=== PATIENT | male | born 1945 | race African-American/Black ===

== ENCOUNTER 2021-02-14 14:48 | Inpatient (IN) | payer MEDICARE ==
[~2021-02-14] VITALS: Ht 177.8 cm; Wt 80.7 kg
[2021-02-14 15:28] LABS: CHLORIDE 104 mEq/L (98-107)
[2021-02-14 15:39] LABS: ETHANOL BLOOD < 10 mg/dL
[2021-02-14 15:56] LABS: BASOPHILS % 0.7 % (0.0-2.0); EOSINOPHILS % 0.8 % (0.0-5.0); HEMATOCRIT. 26.6 % (42.0-52.0); LYMPHOCYTES % 13.4 % (20.0-50.0); MEAN CORPUSCULAR HEMOGLOBIN 36.6 pg (28.0-32.0); MEAN CORPUSCULAR VOLUME 105.3 fL (80.0-94.0); MEAN PLATELET VOLUME 8.1 fl (7.4-10.4); MONOCYTES % 1.8 % (2.0-8.0); NEUTROPHILS % 83.3 % (40.0-76.0); PLATELET 170 x1000/uL (130-400); RED BLOOD CELL COUNT 2.52 mill/uL (4.7-6.1); RED CELL DISTRIBUTION WIDTH 21.1 % (11.6-14.6)
[2021-02-14 15:59] LABS: HEMOGLOBIN. 9.2 g/dL (14.0-18.0)
[2021-02-14] MEDS ORDERED: ASPIRIN 325MG EC TABLET PO NR (16:00)
[2021-02-14] MEDS ORDERED: ALBUTEROL (0.083%) 2.5MG/3ML NEB HHN NR (17:15)
[2021-02-14] MEDS ORDERED: IOHEXOL-350 100 ML BOTTLE ONE (18:22)
[2021-02-14] MEDS ORDERED: ACETAMINOPHEN 325MG TABLET PO PRN (19:45)
[2021-02-14] MEDS ORDERED: CLONIDINE 0.1MG TABLET PO PRN (19:45)
[2021-02-14] MEDS ORDERED: DIPHENHYDRAMINE 50MG/ML VIAL IV PRN (19:45)
[2021-02-14] MEDS ORDERED: IPRATROPIUM/ALBUTEROL 0.5-3(2.5)MG/3ML NEB HHN PRN (19:45)
[2021-02-14] MEDS ORDERED: GUAIFENESIN 200MG/10ML SUGAR FREE UDC PO PRN (19:45)
[2021-02-14] MEDS ORDERED: MAGNESIUM/ALUMINUM HYDROXIDE/SIMETHICONE 30ML UDC PO PRN (19:45)
[2021-02-14] MEDS ORDERED: MORPHINE SULFATE 2 MG/ML CPJ (NOT FOR IM USE) IV PRN ×2 (19:45→21:30)
[2021-02-14] MEDS ORDERED: ONDANSETRON HCL 4MG/2ML INJ IV PRN (19:45)
[2021-02-14] MEDS ORDERED: NALOXONE HCL 0.4MG/ML VIAL IV PRN (20:00)
[2021-02-14] MEDS: IPRATROPIUM/ALBUTEROL 0.5-3(2.5)MG/3ML NEB HHN SCH (20:35)
[2021-02-14] MEDS: ENOXAPARIN 40MG/0.4ML SYR SUBCUT SCH (20:46)
[2021-02-14 21:03] LABS: *AMPHETAMINES SCREEN URINE NEGATIVE (NEGATIVE); *BARBITURATES SCREEN URINE NEGATIVE (NEGATIVE); *BENZODIAZEPINES SCREEN URINE NEGATIVE (NEGATIVE); *COCAINE SCREEN URINE NEGATIVE (NEGATIVE)
[2021-02-14 21:05] LABS: CANNABINOID URINE SCREEN NEGATIVE (NEGATIVE); METHADONE URINE SCREEN NEGATIVE (NEGATIVE); OPIATES URINE SCREEN NEGATIVE (NEGATIVE); PHENCYCLIDINE URINE SCREEN NEGATIVE (NEGATIVE)
[2021-02-14] MEDS: OMEPRAZOLE 20MG CAPSULE EXTENDED RELEASE PO SCH (22:11)
[2021-02-14] MEDS: PREDNISONE 20MG TABLET PO SCH (22:11)
[2021-02-14] MEDS: ZOLPIDEM TARTRATE 5MG TABLET PO PRN (22:12)
[2021-02-14] MEDS: SODIUM CHLORIDE 0.9% INJ 3ML FLUSH IVF SCH (22:29)
[2021-02-15] VITALS (10 sets, daily range): BP systolic 97–136; BP diastolic 47–68
[2021-02-15] MEDS: SODIUM CHLORIDE 0.9% INJ 3ML FLUSH IVF SCH ×3 (05:02→20:24)
[2021-02-15 07:21] LABS: HEPATITIS B SURFACE ANTIGEN NEGATIVE
[2021-02-15] MEDS: ASPIRIN 81MG EC TABLET PO SCH (08:32)
[2021-02-15] MEDS: OMEPRAZOLE 20MG CAPSULE EXTENDED RELEASE PO SCH ×2 (08:32→20:24)
[2021-02-15] MEDS: PREDNISONE 20MG TABLET PO SCH ×4 (08:32→20:24)
[2021-02-15] MEDS: IPRATROPIUM/ALBUTEROL 0.5-3(2.5)MG/3ML NEB HHN SCH ×3 (09:45→20:14)
[2021-02-15] MEDS: SODIUM CHLORIDE 0.45% 1,000 ML IV SCH (11:24)
[2021-02-15] MEDS ORDERED: THY15 MT (11:58)
[2021-02-15] MEDS: DOCUSATE SODIUM 100MG CAPSULE PO SCH (17:08)
[2021-02-15] MEDS: THROAT LOZENGES-BENZOCAINE/MENTH/CETYLPYRD CL LOZENGES MM PRN (17:35)
[2021-02-15 17:40] LABS: CHLORIDE 104 mEq/L (98-107)
[2021-02-15 18:46] LABS: HEMATOCRIT. 23.9 % (42.0-52.0); HEMOGLOBIN. 8.3 g/dL (14.0-18.0); MEAN CORPUSCULAR HEMOGLOBIN 34.6 pg (28.0-32.0); MEAN CORPUSCULAR VOLUME 99.8 fL (80.0-94.0); MEAN PLATELET VOLUME 8.5 fl (7.4-10.4); PLATELET 153 x1000/uL (130-400); RED BLOOD CELL COUNT 2.39 mill/uL (4.7-6.1); RED CELL DISTRIBUTION WIDTH 21.6 % (11.6-14.6)
[2021-02-15 19:44] LABS: PLATELET ESTIMATE NORMAL
[2021-02-15] MEDS: ENOXAPARIN 40MG/0.4ML SYR SUBCUT SCH (20:24)
[2021-02-15] MEDS ORDERED: MAGNESIUM CITRATE 300ML SOLUTION PO NR (23:00)
[2021-02-16] VITALS (12 sets, daily range): BP systolic 97–143; BP diastolic 43–71
[2021-02-16] MEDS: ACETAMINOPHEN 325MG TABLET PO PRN (01:14)
[2021-02-16] MEDS: IPRATROPIUM/ALBUTEROL 0.5-3(2.5)MG/3ML NEB HHN SCH ×4 (01:55→19:48)
[2021-02-16] MEDS: SODIUM CHLORIDE 0.45% 1,000 ML IV SCH ×2 (05:22→12:24)
[2021-02-16] MEDS: SODIUM CHLORIDE 0.9% INJ 3ML FLUSH IVF SCH ×3 (05:22→20:45)
[2021-02-16 08:08] LABS: CHLORIDE 103 mEq/L (98-107)
[2021-02-16] MEDS: DOCUSATE SODIUM 100MG CAPSULE PO SCH ×2 (09:00→16:33)
[2021-02-16] MEDS: ASPIRIN 81MG EC TABLET PO SCH (09:05)
[2021-02-16] MEDS: PREDNISONE 20MG TABLET PO SCH ×4 (09:06→20:45)
[2021-02-16] MEDS: OMEPRAZOLE 20MG CAPSULE EXTENDED RELEASE PO SCH ×2 (09:06→20:45)
[2021-02-16] MEDS: THROAT LOZENGES-BENZOCAINE/MENTH/CETYLPYRD CL LOZENGES MM PRN (17:18)
[2021-02-16] MEDS: ENOXAPARIN 40MG/0.4ML SYR SUBCUT SCH (20:45)
[2021-02-16] MEDS: ZOLPIDEM TARTRATE 5MG TABLET PO PRN (20:55)
[2021-02-17] VITALS (13 sets, daily range): BP systolic 97–143; BP diastolic 45–75
[2021-02-17] MEDS: IPRATROPIUM/ALBUTEROL 0.5-3(2.5)MG/3ML NEB HHN SCH ×4 (00:13→12:17)
[2021-02-17] MEDS: SODIUM CHLORIDE 0.45% 1,000 ML IV SCH ×2 (00:29→13:09)
[2021-02-17] MEDS: ACETAMINOPHEN 325MG TABLET PO PRN ×2 (00:33→20:16)
[2021-02-17] MEDS: SODIUM CHLORIDE 0.9% INJ 3ML FLUSH IVF SCH ×3 (06:21→21:01)
[2021-02-17] MEDS: DOCUSATE SODIUM 100MG CAPSULE PO SCH ×2 (08:00→17:00)
[2021-02-17] MEDS: ASPIRIN 81MG EC TABLET PO SCH (08:20)
[2021-02-17] MEDS: PREDNISONE 20MG TABLET PO SCH ×4 (08:20→20:09)
[2021-02-17] MEDS: OMEPRAZOLE 20MG CAPSULE EXTENDED RELEASE PO SCH ×2 (08:20→20:09)
[2021-02-17] MEDS: ENOXAPARIN 40MG/0.4ML SYR SUBCUT SCH (20:12)
[2021-02-18] VITALS (12 sets, daily range): BP systolic 111–143; BP diastolic 55–77
[2021-02-18] MEDS: SODIUM CHLORIDE 0.45% 1,000 ML IV SCH ×2 (01:01→15:26)
[2021-02-18] MEDS: SODIUM CHLORIDE 0.9% INJ 3ML FLUSH IVF SCH ×3 (06:00→20:10)
[2021-02-18 06:06] LABS: CHLORIDE 103 mEq/L (98-107)
[2021-02-18] MEDS: OMEPRAZOLE 20MG CAPSULE EXTENDED RELEASE PO SCH ×2 (07:30→20:10)
[2021-02-18] MEDS: IPRATROPIUM/ALBUTEROL 0.5-3(2.5)MG/3ML NEB HHN SCH ×2 (08:02→12:00)
[2021-02-18] MEDS: PREDNISONE 20MG TABLET PO SCH ×4 (09:00→20:10)
[2021-02-18] MEDS: DOCUSATE SODIUM 100MG CAPSULE PO SCH ×2 (09:00→17:00)
[2021-02-18] MEDS: ASPIRIN 81MG EC TABLET PO SCH (09:00)
[2021-02-18 16:49] LABS: CHLORIDE 102 mEq/L (98-107)
[2021-02-18 17:18] LABS: BASOPHILS % 0.3 % (0.0-2.0); EOSINOPHILS % 0.2 % (0.0-5.0); HEMATOCRIT. 26.1 % (42.0-52.0); HEMOGLOBIN. 8.7 g/dL (14.0-18.0); LYMPHOCYTES % 10.8 % (20.0-50.0); MEAN CORPUSCULAR HEMOGLOBIN 34.2 pg (28.0-32.0); MEAN CORPUSCULAR VOLUME 102.6 fL (80.0-94.0); MEAN PLATELET VOLUME 8.4 fl (7.4-10.4); MONOCYTES % 4.5 % (2.0-8.0); NEUTROPHILS % 84.2 % (40.0-76.0); PLATELET 160 x1000/uL (130-400); RED BLOOD CELL COUNT 2.55 mill/uL (4.7-6.1); RED CELL DISTRIBUTION WIDTH 22.7 % (11.6-14.6)
[2021-02-18] MEDS: ENOXAPARIN 40MG/0.4ML SYR SUBCUT SCH (20:10)
[2021-02-18] MEDS: ACETAMINOPHEN 325MG TABLET PO PRN (20:13)
[2021-02-19] VITALS (12 sets, daily range): BP systolic 113–148; BP diastolic 58–89
[2021-02-19] MEDS: SODIUM CHLORIDE 0.45% 1,000 ML IV SCH ×2 (03:26→16:36)
[2021-02-19] MEDS: SODIUM CHLORIDE 0.9% INJ 3ML FLUSH IVF SCH ×3 (05:11→21:42)
[2021-02-19 05:39] LABS: CHLORIDE 103 mEq/L (98-107)
[2021-02-19] MEDS: DOCUSATE SODIUM 100MG CAPSULE PO SCH ×2 (07:17→16:42)
[2021-02-19] MEDS: PREDNISONE 20MG TABLET PO SCH ×4 (07:17→21:41)
[2021-02-19] MEDS: FAMOTIDINE 20MG TABLET PO SCH ×2 (07:17→21:41)
[2021-02-19] MEDS ORDERED: CEFAZOLIN 1000MG PREMIX 100 ML IV ONE (07:23)
[2021-02-19] MEDS ORDERED: IODIXANOL 320MG/ML 100 ML BOTTLE IV ONE (08:00)
[2021-02-19] MEDS ORDERED: GENTAMICIN SULF 40MG/ML 2ML VIAL ONE (08:00)
[2021-02-19] MEDS ORDERED: GENTAMICIN/NS IRRIGATION 500 ML IR ONE (08:00)
[2021-02-19] MEDS ORDERED: LIDOCAINE HCL 1% 20ML VIAL (Pyxis) INJ ONE (08:00)
[2021-02-19] MEDS ORDERED: PROPOFOL 10MG/ML 100ML 100 ML IV ONE (08:14)
[2021-02-19] MEDS ORDERED: FENTANYL CITRATE/PF 50MCG/ML 2ML VIAL ONE (08:57)
[2021-02-19 09:57] LABS: BASOPHILS % 0.3 % (0.0-2.0); HEMATOCRIT. 26.7 % (42.0-52.0); HEMOGLOBIN. 9.1 g/dL (14.0-18.0); LYMPHOCYTES % 7.9 % (20.0-50.0); MEAN CORPUSCULAR HEMOGLOBIN 36.5 pg (28.0-32.0); MEAN CORPUSCULAR VOLUME 107.3 fL (80.0-94.0); MONOCYTES % 2.5 % (2.0-8.0); NEUTROPHILS % 89.3 % (40.0-76.0); PLATELET 148 x1000/uL (130-400); RED BLOOD CELL COUNT 2.48 mill/uL (4.7-6.1); RED CELL DISTRIBUTION WIDTH 23.4 % (11.6-14.6)
[2021-02-19] MEDS ORDERED: HYDROCODONE/ACETAMINOPHEN 5/325MG TABLET PO PRN (10:00)
[2021-02-19] MEDS ORDERED: MEPERIDINE HCL/PF 25MG/ML CPJ IV PRN (10:15)
[2021-02-19] MEDS ORDERED: LABETALOL 5MG/ML SYR 20 MG/4 ML SYRINGE IV PRN (10:15)
[2021-02-19] MEDS ORDERED: HYDROMORPHONE HCL/PF 2MG/ML CPJ IV PRN (10:15)
[2021-02-19] MEDS ORDERED: ONDANSETRON HCL 4MG/2ML INJ IV PRN (10:15)
[2021-02-19] MEDS: IPRATROPIUM/ALBUTEROL 0.5-3(2.5)MG/3ML NEB HHN SCH ×2 (13:23→21:14)
[2021-02-19] MEDS: ASPIRIN 81MG EC TABLET PO SCH (16:36)
[2021-02-19] MEDS: CEFAZOLIN 1000MG PREMIX 50 ML IV SCH (16:45)
[2021-02-19] MEDS: ACETAMINOPHEN 325MG TABLET PO PRN (23:11)
[2021-02-20] VITALS (13 sets, daily range): BP systolic 126–155; BP diastolic 50–90
[2021-02-20] MEDS: IPRATROPIUM/ALBUTEROL 0.5-3(2.5)MG/3ML NEB HHN SCH (00:55)
[2021-02-20] MEDS: CEFAZOLIN 1000MG PREMIX 50 ML IV SCH (01:10)
[2021-02-20] MEDS: SODIUM CHLORIDE 0.45% 1,000 ML IV SCH (05:02)
[2021-02-20] MEDS: PREDNISONE 20MG TABLET PO SCH ×2 (06:18→14:34)
[2021-02-20 06:25] LABS: CHLORIDE 101 mEq/L (98-107)
[2021-02-20] MEDS: SODIUM CHLORIDE 0.9% INJ 3ML FLUSH IVF SCH (06:26)
[2021-02-20] MEDS: ASPIRIN 81MG EC TABLET PO SCH (08:11)
[2021-02-20] MEDS: DOCUSATE SODIUM 100MG CAPSULE PO SCH (08:12)
[2021-02-20] MEDS: FAMOTIDINE 20MG TABLET PO SCH (08:12)
[2021-02-20 08:41] LABS: HEMATOCRIT. 25.8 % (42.0-52.0); HEMOGLOBIN. 9.4 g/dL (14.0-18.0); MEAN CORPUSCULAR HEMOGLOBIN 40.8 pg (28.0-32.0); MEAN CORPUSCULAR VOLUME 111.6 fL (80.0-94.0); MEAN PLATELET VOLUME 8.1 fl (7.4-10.4); PLATELET 133 x1000/uL (130-400); RED BLOOD CELL COUNT 2.31 mill/uL (4.7-6.1); RED CELL DISTRIBUTION WIDTH 23.1 % (11.6-14.6)
[2021-02-20] MEDS ORDERED: GUAIFENESIN-DM 200MG-20MG/10ML UDC PO PRN (12:15)
[2021-02-20 12:41] LABS: BG BASE EXCESS 5.5 mmol/L (-2.0-2.0); BG CARBOXYHEMOGLOBIN 1.8 % (0.5-1.5); BG DEOXYHEMOGLOBIN 11.1 % (0.0-5.0); BG FRACTION INSPIRED OXYGEN 21; BG METHEMOGLOBIN 0.2 % (0.0-1.5); BG OXYGEN SATURATION 88.7 % (92.0-98.5); BG OXYHEMOGLOBIN 86.9 % (94.0-97.0); BG PCO2 44.1 mmHg (35.0-45.0); BG PH 7.451 (7.350-7.450); BG PO2 58.2 mmHg (75.0-100.0); BG SAMPLE SITE RIGHT RADIAL; BG TOTAL HEMOGLOBIN 10.3 g/dL (12.0-18.0); BG VENT MODE ROOM AIR
[2021-02-20 14:16] LABS: PLATELET ESTIMATE NORMAL
[2021-02-20 21:10] LABS: FOLIC ACID (FOLATE) SERUM 5.8 ng/mL (>5.38)
== END 2021-02-20 17:00 | disposition home health service (06) | DRG 242 ==
LOC: ER 14:48 → EDBEDREQ 19:30 → EDBEDREQTM 19:30 → EDBEDREQSVC 19:30 → ENRESERV 02-15 01:46 → 5EST 02-15 05:05 → 3WST 02-19 11:26
PROVIDERS: ADMIT Internal Medicine; ATTEND Internal Medicine
PROC: 0JH606Z Insertion of Pacemaker, Dual Chamber into Chest Subcutaneous Tissue and Fascia, Open Approach (ICD-10-PCS; principal; 2021-02-19)
PROC: 02HK3JZ Insertion of Pacemaker Lead into Right Ventricle, Percutaneous Approach (ICD-10-PCS; 2021-02-19)
PROC: 02H63JZ Insertion of Pacemaker Lead into Right Atrium, Percutaneous Approach (ICD-10-PCS; 2021-02-19)
PROC: B517YZZ Fluoroscopy of Left Subclavian Vein using Other Contrast (ICD-10-PCS; 2021-02-19)
DX: I44.2 Atrioventricular block, complete (principal); I21.4 Non-ST elevation (NSTEMI) myocardial infarction; J18.9 Pneumonia, unspecified organism; J96.21 Acute and chronic respiratory failure with hypoxia; M48.56XA Collapsed vertebra, not elsewhere classified, lumbar region, initial encounter for fracture; B17.9 Acute viral hepatitis, unspecified; C34.92 Malignant neoplasm of unspecified part of left bronchus or lung; C79.51 Secondary malignant neoplasm of bone; D61.818 Other pancytopenia; E44.1 Mild protein-calorie malnutrition; I10 Essential (primary) hypertension; I25.10 Atherosclerotic heart disease of native coronary artery without angina pectoris; N28.1 Cyst of kidney, acquired; D53.9 Nutritional anemia, unspecified; D63.8 Anemia in other chronic diseases classified elsewhere; E87.5 Hyperkalemia; I49.5 Sick sinus syndrome; J43.9 Emphysema, unspecified; M48.02 Spinal stenosis, cervical region; R13.10 Dysphagia, unspecified; M54.9 Dorsalgia, unspecified; E03.9 Hypothyroidism, unspecified; M47.812 Spondylosis without myelopathy or radiculopathy, cervical region; Z20.822 Contact with and (suspected) exposure to COVID-19; Z85.118 Personal history of other malignant neoplasm of bronchus and lung; Z87.891 Personal history of nicotine dependence; Z74.01 Bed confinement status; Z68.25 Body mass index [BMI] 25.0-25.9, adult; Z79.01 Long term (current) use of anticoagulants; Z82.49 Family history of ischemic heart disease and other diseases of the circulatory system; Z95.0 Presence of cardiac pacemaker; Z95.828 Presence of other vascular implants and grafts
CPT/HCPCS: 33208; 36415; 36600; 70490; 71045; 71275; 72141; 72146; 72148; 75820; 80048; 80053; 80305; 80320; 82375; 82607; 82746; 82805; 83735; 84443; 84484; 85025; 86705; 86709; 86803; 87340; 87426; 92610; 93005; 93306; 94640; 99291; A4565; C1785; C1893; C1898; J0690; J1580; J1650; J2704; J3010; J3490; J7512; Q9967; G0480